=== PATIENT | female | born 1945 | race Caucasian/White ===

== ENCOUNTER 2017-12-24 14:40 | Emergency (ER) | payer MEDICARE, OTHER, MEDICAID ==
[2017-12-24 16:04] VITALS: BP 126/97
--- NOTE | 2017-12-24 17:27 | ER ---
DATE SEEN: 12/24/2017 TIME SEEN: The patient was seen about 12 minutes after she arrived which is 1459 hours. 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 X-rays today revealed that there are no new fractures but she had old complicated fracture with large exostosis of the right distal fibula. Long screw is noted in the medial malleolar fracture. There is mild osteoporosis and there is a shift of the talus on the talotibial joint which is old, unchanged since July 2016. REVIEW OF SYSTEMS: The patient cannot provide a review of systems because of a dense stroke. She has difficulty speaking. Review of systems as noted above. PHYSICAL EXAMINATION: VITAL SIGNS: Blood pressure 130/83, heart rate 64, respirations 15, oxygen saturation 97%, and temperature 36.7 degrees centigrade. GENERAL: Alert, pleasant, very happy, smiling woman, in no acute distress. GENERAL DISPOSITION: She can answer yes and no to my questions, so she does not have receptive aphasia, but she has an expressive aphasia. HEENT: PERRLA intact. Pharynx without abnormality. NECK: No bruits. No adenopathy. No tracheal shift or tug. LUNGS: Clear without rales. HEART: S1, S2. Irregular rhythm. ABDOMEN: Soft. No guarding. No abdominal discomfort. EXTREMITIES: Without abnormality except for this prominent right excrescence, distal to the medial malleolus. No tenderness noted. No break in the skin noted. She has mild deformity of the ankle with hypertrophic changes in the lateral malleolus and slight step-off of the lateral malleolus which does not have any crepitus. Range of motion of the ankle is decreased. She has slight foot drop from her left CVA resulting in right hemiparesis. Capillary refill is normal and sensation is normal. X-ray as noted above. Unchanged bimalleolar fracture with screw in the medial malleolus. The screw will probably need to be taken out as the problem of potential disruption of the dermis. I leave that decision to the discretion of the orthopedist.. Perhaps it became notable today, and this may be loosened up. It does not look like loosened on the basis of the appearance of the malleolus. An d my intuition is that has been h there for a long time and was just noted today by an attentive nurse today. She will need further orthopedic consultation, to consider if this should be removed. /[id number] TIM/MADDI TAN
--- NOTE | 2017-12-27 11:14 | CR ---
INDICATION: New onset right ankle pain. RIGHT ANKLE: Three views of the right ankle revealed evidence of a previous ORIF with a screw in the medial malleolus, apparently for previous fracture through that area. At least two bony densities are noted at the medial malleolus adjacent to the talus with lateral offset of the talus with respect to the tibia of approximately 7.7 mm. There is also narrowing of the lateral tibiotalar joint space. A previous healed fracture of the distal shaft and metaphysis of the fibula is noted with moderate deformity in healing. A definite acute fracture or dislocation was not identified. Compared with 08/01/2016 examination, there is no significant interval change. 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 MTDD
== END 2017-12-24 15:59 | disposition home or self-care (01) ==
LOC: FB.ED 14:40
DX: T84.89XA Other specified complication of internal orthopedic prosthetic devices, implants and grafts, initial encounter (principal); R22.9 Localized swelling, mass and lump, unspecified; I48.91 Unspecified atrial fibrillation; I50.9 Heart failure, unspecified; I25.810 Atherosclerosis of coronary artery bypass graft(s) without angina pectoris; G40.909 Epilepsy, unspecified, not intractable, without status epilepticus; Z86.73 Personal history of transient ischemic attack (TIA), and cerebral infarction without residual deficits
CPT/HCPCS: 73610-RT; 99283

== ENCOUNTER 2023-05-04 09:59 | Day surgery (SDC) | payer MEDICARE, OTHER, MEDICAID ==
[2023-05-04] MEDS ORDERED: Sodium Chloride 0.9% 10 ML Syringe FLUSH PRN (10:00)
[2023-05-04] MEDS ORDERED: Lactated Ringers 1,000 ML IV PRN (10:00)
[2023-05-04] MEDS ORDERED: fentaNYL 100 MCG/2 ML SDV IV ONE (10:00)
[2023-05-04] MEDS ORDERED: Midazolam 1 MG/ML 2 ML SDV IV ONE (10:00)
[2023-05-04] MEDS ORDERED: acetaZOLAMIDE 500 MG Cap.ER PO ONE (12:00)
[2023-05-04 12:49] VITALS: BP 138/87; PULSE 96
== END 2023-05-04 12:16 ==
LOC: FB.SDS 09:59
PROVIDERS: ATTEND Ophthalmology
DX: H25.9 Unspecified age-related cataract (principal); H40.1111 Primary open-angle glaucoma, right eye, mild stage; I48.20 Chronic atrial fibrillation, unspecified; E78.49 Other hyperlipidemia; F33.0 Major depressive disorder, recurrent, mild; M85.80 Other specified disorders of bone density and structure, unspecified site; J44.9 Chronic obstructive pulmonary disease, unspecified; I13.0 Hypertensive heart and chronic kidney disease with heart failure and stage 1 through stage 4 chronic kidney disease, or unspecified chronic kidney disease; N18.31 Chronic kidney disease, stage 3a; I50.9 Heart failure, unspecified; G40.119 Localization-related (focal) (partial) symptomatic epilepsy and epileptic syndromes with simple partial seizures, intractable, without status epilepticus; Z79.01 Long term (current) use of anticoagulants; Z79.899 Other long term (current) drug therapy; Z86.73 Personal history of transient ischemic attack (TIA), and cerebral infarction without residual deficits; Z87.891 Personal history of nicotine dependence
CPT/HCPCS: 00142; 66991; C1783; J2250; J3010; J3490; V2632

== ENCOUNTER 2023-05-18 09:35 | Day surgery (SDC) | payer MEDICARE, OTHER, MEDICAID ==
[~2023-05-18 09:35] MED LIST: Lactated Ringers 1,000 ML IV PRN
[2023-05-18] MEDS ORDERED: Sodium Chloride 0.9% 10 ML Syringe IV ONE (09:36)
[2023-05-18] MEDS ORDERED: Midazolam 1 MG/ML 2 ML SDV IV ONE (09:36)
[2023-05-18] MEDS ORDERED: fentaNYL 100 MCG/2 ML SDV IV ONE (09:36)
[2023-05-18] MEDS: Sodium Chloride 0.9% 10 ML Syringe FLUSH PRN (10:23)
[2023-05-18] MEDS: acetaZOLAMIDE 500 MG Cap.ER PO ONE (11:53)
[2023-05-18 12:00] VITALS: BP 149/99; PULSE 113
== END 2023-05-18 12:11 | disposition home or self-care (01) ==
LOC: FB.SDS 09:35
PROVIDERS: ATTEND Ophthalmology
DX: H26.9 Unspecified cataract (principal); H40.1121 Primary open-angle glaucoma, left eye, mild stage; I11.0 Hypertensive heart disease with heart failure; I50.9 Heart failure, unspecified; E78.49 Other hyperlipidemia; I48.20 Chronic atrial fibrillation, unspecified; F33.0 Major depressive disorder, recurrent, mild; M85.80 Other specified disorders of bone density and structure, unspecified site; J44.9 Chronic obstructive pulmonary disease, unspecified; Z79.01 Long term (current) use of anticoagulants; Z79.899 Other long term (current) drug therapy; Z87.891 Personal history of nicotine dependence
CPT/HCPCS: 00142; 99100; A9270-GY; C1783; J2250; J3010; J3490; V2632

== ENCOUNTER 2025-07-12 12:56 | Emergency (ER) | payer MEDICARE, OTHER, MEDICAID ==
[2025-07-12 13:45] LABS: BASOPHILS ABSOLUTE AUTO 0.0 x10-3/uL (0.0-0.1); BASOPHILS PERCENT AUTO 0.4 % (0.2-1.5); EOSINOPHILS ABSOLUTE AUTO 0.0 x10-3/uL (0.0-0.8); EOSINOPHILS PERCENT AUTO 0.0 % (0.6-8.1); LYMPHOCYTES ABSOLUTE AUTO 2.4 x10-3/uL (1.0-4.4); LYMPHOCYTES PERCENT AUTO 27.4 % (18.4-52.1); MEAN PLATELET VOLUME 8.3 fL (7.1-12.4); MONOCYTES ABSOLUTE AUTO 0.8 x10-3/uL (0.3-1.0); MONOCYTES PERCENT AUTO 9.5 % (4.4-15.7); NEUTROPHILS ABSOLUTE AUTO 5.4 x10-3/uL (1.5-6.3); NEUTROPHILS PERCENT AUTO 62.7 % (30.8-76.2); PLATELET COUNT,PLT 249 x10(3)uL (151-488); RED BLOOD CELL COUNT 4.08 x10(6)uL (3.60-5.20); RED CELL DISTRIBUTION WIDTH 14.1 % (12.3-16.5); WHITE BLOOD CELL COUNT,WBC 8.6 x10-3/uL (3.0-10.3)
[2025-07-12 13:47] LABS: BLOOD UREA NITROGEN,BUN 20 mg/dL (7-18); CARBON DIOXIDE,CO2 31 mmol/L (21-32); CHLORIDE,CL 101 mmol/L (100-110); CREATININE 1.0 mg/dL (0.55-1.02); EST CRCL DRUG DOSING (CG) 40.04 mL/min; ESTIMATED GFR 58 mL/min (>60); GLUCOSE RANDOM 117 mg/dL (80-116); POTASSIUM,K 4.5 mmol/L (3.5-5.3); SODIUM,NA 142 mmol/L (135-145)
[2025-07-12 13:53] LABS: A/G RATIO 0.8; ALANINE AMINOTRANSFERASE,ALT 24 U/L (12-36); ASPARTATE AMNIOTRANSFERASE,AST 28 IU/L (5-25); BILIRUBIN TOTAL 0.6 mg/dL (0.1-1.3); PROTEIN TOTAL,TP 8.1 g/dL (6.0-8.0)
[2025-07-12 13:55] LABS: INR 2.87 (1.00-1.24)
[2025-07-12 13:57] LABS: PTT,PARTIAL THROMBOPLSTIN TIME 43.4 SECONDS (24.4-33.2)
[2025-07-12 13:59] LABS: LACTIC ACID 1.3 mmol/L (0.4-2.0)
[2025-07-12] MEDS: Sodium Chloride 0.9% 10 ML Syringe FLUSH PRN (14:17)
[2025-07-12] MEDS: methylPREDNISolone Sodium Succinate 125 MG/2 ML SDV IVPUSH ONE (14:17)
[2025-07-12] MEDS: Furosemide 40 MG/4 ML VIAL IVPUSH ONE (16:35)
[2025-07-12] MEDS: hydrALAZINE 20 MG/ML SDV IVPUSH ONE (17:07)
[2025-07-12 17:24] LABS: GLUCOSE,URINE NORMAL (NORMAL)
[2025-07-12 17:25] LABS: OCCULT BLOOD,URINE NEGATIVE (NEGATIVE)
[2025-07-12 17:27] LABS: APPEARANCE,URINE CLEAR (CLEAR)
[2025-07-12 17:30] LABS: SQUAMOUS EPITHELIAL CELLS,UR FEW (NS,R,O)
[2025-07-12 23:29] VITALS: BP 128/82; PULSE 121
== END 2025-07-12 23:22 ==
LOC: FB.ED 12:56
DX: I11.0 Hypertensive heart disease with heart failure (principal); I50.9 Heart failure, unspecified; I48.91 Unspecified atrial fibrillation; I44.7 Left bundle-branch block, unspecified; J44.9 Chronic obstructive pulmonary disease, unspecified; Z79.899 Other long term (current) drug therapy; Z79.01 Long term (current) use of anticoagulants; Z79.51 Long term (current) use of inhaled steroids
CPT/HCPCS: 36415; 51702; 71045; 80053; 81001; 83605; 83880; 84484; 85025; 85610; 85730; 87428; 93005; 93010; 96374; 96375; 99285; A9270; J0360; J1938; J7030; J2919